=== PATIENT | male | born 1935 | race Two or more races ===

== ENCOUNTER 2017-11-03 07:51 | Outpatient (CLI) | payer OTHER ==
[~2017-11-03 07:51] MED LIST: INTEGRA PLUS C1 EACH PO; Protonix PO; XARELTO15 MG PO; Zestril PO
== END 2017-11-03 09:14 | disposition home or self-care (01) ==
LOC: NUCLEAR 07:51
DX: C61 Malignant neoplasm of prostate (principal)
CPT/HCPCS: 78306; A9503

== ENCOUNTER → 2017-11-04 | Outpatient (CLI) | payer OTHER | END | disposition home or self-care (01) | LOC: TOM 07:45 | DX: C61 Malignant neoplasm of prostate (principal) ==

== ENCOUNTER 2018-05-03 07:31 | Outpatient (CLI) | payer OTHER | END 2018-05-03 07:42 | disposition home or self-care (01) | LOC: TOM 07:31 | DX: C61 Malignant neoplasm of prostate (principal) | CPT/HCPCS: 71270; 74178; Q9965 ==

== ENCOUNTER 2018-05-06 09:15 | Outpatient (CLI) | payer OTHER | END 2018-05-06 09:28 | disposition home or self-care (01) | LOC: NUCLEAR 09:15 | DX: C61 Malignant neoplasm of prostate (principal); C79.51 Secondary malignant neoplasm of bone | CPT/HCPCS: 78306; A9503 ==

== ENCOUNTER 2019-03-02 07:30 | Outpatient (CLI) | payer OTHER | END 2019-03-02 17:00 | disposition home or self-care (01) | LOC: MRI 07:30 | DX: M48.062 Spinal stenosis, lumbar region with neurogenic claudication (principal) | CPT/HCPCS: 72148 ==

== ENCOUNTER 2019-04-26 11:22 | Emergency (ER) | payer OTHER ==
[~2019-04-26] VITALS: Ht 180.3 cm; Wt 89.4 kg
[2019-04-26] MEDS ORDERED: TRAMADOL HCL50 MG (11:30)
[2019-04-26] MEDS ORDERED: NORFLEX100MG PO (14:49)
[2019-04-26] MEDS ORDERED: KETO10TA2 PO (14:49)
== END 2019-04-26 14:59 | disposition home or self-care (01) ==
LOC: ER 11:22
DX: M25.551 Pain in right hip (principal); M25.561 Pain in right knee; S73.192S Other sprain of left hip, sequela; S83.8X1S Sprain of other specified parts of right knee, sequela; W18.39XS Other fall on same level, sequela

== ENCOUNTER 2019-08-28 09:23 | Outpatient (CLI) | payer OTHER ==
[~2019-08-28 09:23] MED LIST changes: +KETO10TA2 PO; +NORFLEX100MG PO; +TRAMADOL HCL50 MG
== END 2019-08-28 09:52 | disposition home or self-care (01) ==
LOC: NUCLEAR 09:23
DX: I12.0 Hypertensive chronic kidney disease with stage 5 chronic kidney disease or end stage renal disease (principal); N18.3 Chronic kidney disease, stage 3 (moderate); I73.9 Peripheral vascular disease, unspecified

== ENCOUNTER 2020-05-27 07:52 | Outpatient (CLI) | payer OTHER | END 2020-05-27 07:57 | disposition home or self-care (01) | LOC: MRI 07:52 | PROVIDERS: ATTEND Family Medicine | DX: M25.512 Pain in left shoulder (principal) | CPT/HCPCS: 73221 ==

== ENCOUNTER 2020-08-02 15:06 | Inpatient (IN) | payer OTHER ==
[~2020-08-02] VITALS: Ht 180.3 cm; Wt 79.4 kg
[2020-08-08] MEDS ORDERED: FENTANYL1 EAC3 TD (12:07)
[2020-08-08] MEDS ORDERED: INTESTINEX680 M1 PO (12:07)
[2020-08-08] MEDS ORDERED: BISACODYL5 MG PO (12:07)
[2020-08-08] MEDS ORDERED: INTEGRA PLUS C1 EACH PO (12:07)
[2020-08-08] MEDS ORDERED: FAMOTIDINE20 MG PO (12:07)
[2020-08-08] MEDS ORDERED: FOLIC ACID1 MG PO (12:07)
[2020-08-08] MEDS ORDERED: RESTORIL15 MG PO (12:07)
[2020-08-08] MEDS ORDERED: CIPRO500 MG PO (12:07)
[2020-08-08] MEDS ORDERED: Neurin-Sl Tablet Sl SL (12:07)
== END 2020-08-08 16:46 | disposition designated cancer center or children's hospital (05) | DRG 812 ==
LOC: ER 15:06 → SEC-K 23:02 → SURH 08-03 22:33
PROVIDERS: ADMIT Internal Medicine; ATTEND Internal Medicine
PROC: 30233N1 Transfusion of Nonautologous Red Blood Cells into Peripheral Vein, Percutaneous Approach (ICD-10-PCS; principal; 2020-08-03)
PROC: B24BZZZ Ultrasonography of Heart with Aorta (ICD-10-PCS; 2020-08-03)
PROC: 30233N1 Transfusion of Nonautologous Red Blood Cells into Peripheral Vein, Percutaneous Approach (ICD-10-PCS; 2020-08-04)
PROC: 30233N1 Transfusion of Nonautologous Red Blood Cells into Peripheral Vein, Percutaneous Approach (ICD-10-PCS; 2020-08-05)
DX: D64.9 Anemia, unspecified (principal); C79.51 Secondary malignant neoplasm of bone; C61 Malignant neoplasm of prostate; L89.152 Pressure ulcer of sacral region, stage 2; B95.2 Enterococcus as the cause of diseases classified elsewhere; B96.29 Other Escherichia coli [E. coli] as the cause of diseases classified elsewhere; Z20.822 Contact with and (suspected) exposure to COVID-19